=== PATIENT | female | born 2000 | race American Indian/Alaskan Native ===

== ENCOUNTER 2021-01-18 14:03 | Outpatient (CLI) | payer MEDICAID ==
[2021-01-18] MEDS ORDERED: LACTATED RINGERS 500 ML IV ONE (15:46)
[2021-01-18 16:49] VITALS: BP 117/71
== END 2021-01-18 17:05 | disposition home or self-care (01) ==
LOC: TRG 14:03 → APU 14:03 → TRG 17:05
PROVIDERS: ATTEND Student in an Organized Health Care Education/Training Program
DX: O62.9 Abnormality of forces of labor, unspecified (principal); O99.513 Diseases of the respiratory system complicating pregnancy, third trimester; J45.909 Unspecified asthma, uncomplicated; Z3A.34 34 weeks gestation of pregnancy
CPT/HCPCS: 59025; 96360

== ENCOUNTER 2021-02-09 09:41 | Outpatient (CLI) | payer MEDICAID ==
[2021-02-09 10:35] VITALS: BP 120/72
== END 2021-02-09 11:38 | disposition home or self-care (01) ==
LOC: TRG 09:41 → LD 09:44 → TRG 11:38
PROVIDERS: ATTEND Obstetrics & Gynecology
DX: Z34.93 Encounter for supervision of normal pregnancy, unspecified, third trimester (principal); Z3A.37 37 weeks gestation of pregnancy
CPT/HCPCS: 36415; 59025; 84112

== ENCOUNTER 2021-02-16 16:24 | Outpatient (CLI) | payer MEDICAID ==
[2021-02-16 17:01] VITALS: BP 121/76
[2021-02-16 17:52] LABS: Bacteria,Urine 4+ /HPF (Negative); Bilirubin,Urine NEG (Negative); Blood,Urine NEG (Negative); Color,Urine Yellow (Yellow); Protein,Urine <15 mg/dL mg/dL (Negative); Urobilinogen,Urine < 2.0 mg/dL (<2.0)
== END 2021-02-16 19:09 | disposition home or self-care (01) ==
LOC: TRG 16:24 → APU 16:30 → TRG 19:09
PROVIDERS: ATTEND Obstetrics & Gynecology
DX: O26.893 Other specified pregnancy related conditions, third trimester (principal); R10.9 Unspecified abdominal pain; Z3A.38 38 weeks gestation of pregnancy
CPT/HCPCS: 59025; 81001

== ENCOUNTER 2021-02-21 07:27 | Inpatient (IN) | payer MEDICAID ==
--- NOTE | 2021-02-21 08:56 | History and Physical Report ---
History of Present Illness Date of examination: 02/21/21 Date of admission: 02/21/21 Chief complaint: contractions History of present illness: EDC Confirmation: 02/24/2021 Past History : 1 Term Births: 0 Premature Births: 0 Living Children: 0 Para: 0 Mult. Births: 0 Prev : 0 Aborta: 0 Elect. Ab: 0 Spont. Ab: 0 Ectopics: 0 Past Medical History: Reviewed history and no changes required: Negative Past Medical History Past Surgical History: Reviewed history and no changes required: negative Past Medical History Anesthesia Complications: negative Anemia: negative Autoimmune Disorder: negative Bleeding Disorder: negative Blood Transfusions: negative Breast Disease: negative Diabetes: negative Heart Disease: negative Hypertension: negative Hepatitis/Liver Disease: negative Kidney Disease/UTI: negative Neurologic/Epilepsy/Migraines: negative Phlebitis/Varicosities: negative Psychiatric: negative Pulmonary Disease/Asthma: negative Thyroid Disease: negative Hospitalizations: negative 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 of genital herpes: no Partner hx. of genital herpes: no Rash, Viral, or Febrile illness since last LMP? no Varicella/Chicken Pox Status: Immunized TB Risk: no Genetic History Congenital Heart Defect: Mom: no Dad: no Jacob Disease: Mom: no Dad: no Thalassemia Mom: no Dad: no Neural Tube Defect Mom: no Dad: no Down's Syndrome Mom: no Dad: no Guillermo-Sachs Mom: no Dad: no Sickle Cell Disease/Trait Mom: no Dad: no Hemophilia Mom: no Dad: no Muscular Dystrophy Mom: no Dad: no Cystic Fibrosis Mom: no Dad: no [place] Chorea Mom: no Dad: no Mental Retardation Mom: no Dad: no Fragile X Mom: no Dad: no Other Genetic/Chromosomal Disorder Mom: no Dad: no Child w/other defect Mom: no Dad: no Enviromental Exposures Xray Exposure: no Medication, drug, or alcohol use since LMP: no Chemical/Other Exposure: no Exposure to Cat Liter: yes Hx of Parvovirus (Fifth Disease): no Occupational Exposure to Children: none Current Allergies (reviewed today): No known allergies Past History Past Medical History: no pertinent history, other (see HPI) Past Surgical History: no surgical history, other (see HPI) 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: other (see HPI) Family/Genetic History: stroke, other (see HPI) Social history: no significant social history, other (see HPI) - Obstetrical History Expected Date of Delivery: 02/24/21 Actual Gestation: 39 Week(s) 5 Day(s) : 1 Para: 0 Hx # Term Pregnancies: 0 Number of Pregnancies: 0 Spontaneous Abortions: 0 Induced : 0 Number of Living Children: 0 Medications and Allergies Allergies Allergy/AdvReac Type Severity Reaction Status Date / Time No Known Allergies Allergy Verified 02/09/21 10:32 Home Medications Medication Instructions Recorded Confirmed Last Taken Type No.137/Iron/Folic Acd 1 each PO DAILY 02/09/21 02/09/21 02/08/21 History [[facility] Tablet] Nitrofurantoin [place]/M-Cryst 100 mg PO Q12HR #10 capsule 02/16/21 Unknown Rx [Macrobid CAP] Review of Systems All systems: negative Genitourinary: contractions, no vaginal bleeding, no leakage of fluid, no genital sores - Vital Signs Vital signs: Vital Signs Pulse BP 110 H 114/65 02/21/21 08:00 02/21/21 08:00 Temp Pulse Resp BP Pulse Ox 97.5 F L 102 H 16 114/65 95 02/21/21 08:01 02/21/21 08:47 02/21/21 08:01 02/21/21 08:00 02/21/21 08:47 - Physical Exam Breasts: Positive: deferred Cardiovascular: Regular rate Lungs: Positive: Normal air movement Abdomen: Positive: normal appearance, soft. Negative: tenderness Genitourinary (Female): Positive: normal external genitalia, normal perenium Vulva: both: normal Vagina: Positive: normal moisture Uterus: Positive: normal size, normal contour. Negative: tender Anus/Rectum: Positive: normal perianal skin, heme negative Extremities: Positive: normal - Obstetrical FHR: category 1 Uterine Contraction Monitor Mode: External Cervical Dilatation: 3 Cervical Effacement Percentage: 80 station: -2 Uterine Contraction Frequency (min): 2-3 Uterine Contraction Pattern: Regular Uterine Tone Measurement Phase: Resting Results Result Diagrams: 02/21/21 10:05 All other labs normal. Tests: (1) Ct, Ng, Trich vag by HERMAN ([id number]) Order Note: Clinical Information: SRC:VR SRC:UR Chlamydia by HERMAN Negative Negative *1 Gonococcus by HERMAN Negative Negative *2 Trich vag by HERMAN Negative Negative *3 Tests: (2) Strep Gp B HERMAN ([id number]) ! Strep Gp B HERMAN Negative Negative *4 Tests: (1) Profile I ([id number]) HBsAg Screen Negative Negative *1 RPR Non Reactive Non Reactive *2 Rubella Antibodies, IgG 1.82 index Immune >0.99 *3 Non-immune <0.90 Equivocal 0.90 - 0.99 Immune >0.99 ABO Grouping B *4 Rh Factor Positive *5 Please note: Prior records for this patient's ABO / Rh type are not available for additional verification. Antibody Screen Negative Negative *6 WBC 8.8 x10E3/uL 3.4-10.8 *7 RBC 4.88 x10E6/uL 3.77-5.28 *8 Hemoglobin 14.6 g/dL 11.1-15.9 *9 Hematocrit 43.2 % 34.0-46.6 *10 MCV 89 fL 79-97 *11 MCH 29.9 pg 26.6-33.0 *12 MCHC 33.8 g/dL 31.5-35.7 *13 RDW 12.2 % 11.7-15.4 *14 Platelets 193 x10E3/uL 150-450 *15 Neutrophils 78 % Not Estab. *16 Lymphs 17 % Not Estab. *17 Monocytes 4 % Not Estab. *18 Eos 1 % Not Estab. *19 Basos 0 % Not Estab. *20 ! Immature Cells <No Reported Value> *21 Neutrophils (Absolute) 6.9 x10E3/uL 1.4-7.0 *22 Lymphs (Absolute) 1.5 x10E3/uL 0.7-3.1 *23 Monocytes(Absolute) 0.3 x10E3/uL 0.1-0.9 *24 Eos (Absolute) 0.1 x10E3/uL 0.0-0.4 *25 Baso (Absolute) 0.0 x10E3/uL 0.0-0.2 *26 ! Immature Granulocytes 0 % Not Estab. *27 ! Immature Grans (Abs) 0.0 x10E3/uL 0.0-0.1 *28 ! NRBC <No Reported Value> *29 Hematology Comments: <No Reported Value> *30 Tests: (2) HB Solu + Rflx Frac ([id number]) Hemoglobin (Hgb) Solubility Negative Negative *31 Tests: (3) Toxoplasma gondii Ab, IgG ([id number]) ! Toxoplasma gondii Ab,IgG <3.0 IU/mL 0.0-7.1 *32 Negative <7.2 Equivocal 7.2 - 8.7 Positive >8.7 Tests: (4) Cytomegalovirus (CMV) Ab, IgG ([id number]) ! Cytomegalovirus (CMV) Ab, IgG <0.60 U/mL 0.00-0.59 *33 Negative <0.60 Equivocal 0.60 - 0.69 Positive >0.69 Tests: (5) HIV Ag/Ab with Reflex ([id number]) HIV Screen 4th Generation wRfx Non Reactive Non Reactive *34 Tests: (6) Toxoplasma gondii Ab,IgM ([id number]) ! Toxoplasma gondii Ab,IgM <3.0 AU/mL 0.0-7.9 *35 Negative <8.0 Equivocal 8.0 - 9.9 Positive >9.9 Tests: (7) Comment: ([id number]) ! Comment: SPRCS *36 It is presumed the patient has not been infected with and is not undergoing an acute infection with Toxoplasma. If symptoms persist, submit a new specimen after three weeks. Tests: (8) Cytomegalovirus (CMV) Ab, IgM ([id number]) ! Cytomegalovirus (CMV) Ab, IgM <30.0 AU/mL 0.0-29.9 *37 Negative <30.0 Equivocal 30.0 - 34.9 Positive >34.9 A positive result is generally indicative of acute infection, reactivation or persistent IgM production. Tests: (9) HCV Antibody reflex to HERMAN ([id number]) ! HCV Ab <0.1 s/co ratio 0.0-0.9 *38 Tests: (10) Interpretation: ([id number]) ! Interpretation: SPRCS *39 Ultrasound: report reviewed, image reviewed, other (02/12/21: EFW 8lbs 9oz 89%) Assessment and Plan POC d/w pt. Questions encouraged and answered. Pt verbalizes understanding and agrees to POC. Orders placed in EMR for labor admission. Dr. Bonilla made aware. - Patient Problems (1) 39 weeks gestation of Current Visit: Yes Status: Acute Plan to address problem: admit to labor pt may have epidural as desired admission orders placed initiate IV and draw labs Continuous monitoring anticipate
[2021-02-21] MEDS ORDERED: TERBUTALINE 1 MG/1 ML INJ SUB-Q PRN (10:00)
[2021-02-21] MEDS ORDERED: OXYTOCIN DRIP 30 UNITS/500 ML BAG IV SCH (10:00)
[2021-02-21] MEDS ORDERED: OXYTOCIN 10 UNIT/1 ML INJ IM PRN (10:00)
[2021-02-21] MEDS ORDERED: MINERAL OIL 30 ML ORAL LIQD PO PRN (10:00)
[2021-02-21] MEDS ORDERED: LIDOCAINE (2%) 20 MG/1 ML VIAL 20 ML MDV INFILTRATI ONE (10:00)
[2021-02-21] MEDS ORDERED: METHYLERGONOVINE MALEATE 0.2 MG/ML VIAL IM PRN (10:00)
[2021-02-21] MEDS ORDERED: ACETAMINOPHEN 325 MG TAB PO PRN (10:00)
[2021-02-21] MEDS ORDERED: LOPERAMIDE 2 MG CAP PO PRN (10:00)
[2021-02-21] MEDS ORDERED: fentaNYL 100 MCG/2 ML INJ IV PRN (10:00)
[2021-02-21] MEDS ORDERED: ONDANSETRON 4 MG/2 ML INJ IV PRN (10:00)
[2021-02-21] MEDS ORDERED: NALOXONE 0.4 MG/1 ML INJ IV PRN (10:00)
[2021-02-21] MEDS ORDERED: CARBOPROST TROMETHAMINE 250 MCG/1 ML INJ IM PRN (10:00)
[2021-02-21] MEDS ORDERED: ePHEDrine SULFATE 50 MG/1 ML INJ IV PRN ×2 (10:00→14:03)
[2021-02-21] MEDS ORDERED: NalbUPHINE 10 MG/1 ML INJ IV PRN (10:00)
[2021-02-21] MEDS ORDERED: miSOPROStol 200 MCG TAB PR PRN (10:00)
[2021-02-21 10:54] LABS: Hematocrit 35.6 % (30.3-42.9); Hemoglobin 11.1 gm/dl (10.1-14.3); Mean Corpuscular HGB Conc 31 % (30-34); Mean Corpuscular Volume 78 fl (79-97); Platelet Count 195 K/mm3 (140-440); Red Blood Count 4.58 M/mm3 (3.65-5.03); Red Cell Distribution Width 15.6 % (13.2-15.2)
[2021-02-21] MEDS: LACTATED RINGERS 1,000 ML IV SCH ×2 (12:16→15:59)
--- NOTE | 2021-02-21 14:01 | Anesthesia Consultation ---
Anesthesia Consult and Med Hx Date of service: 02/21/21 - Airway Anesthetic Teeth Evaluation: Poor ROM Head & Neck: Adequate Mental/Hyoid Distance: Adequate Mallampati Class: Class II Intubation Access Assessment: Good - Pulmonary Exam CTA: Yes - Cardiac Exam Cardiac Exam: RRR - Pre-Operative Health Status ASA Pre-Surgery Classification: ASA2 Proposed Anesthetic Plan: Epidural - Pulmonary Hx Smoking: No Hx Asthma: Yes (Childhood) Hx Respiratory Symptoms: No SOB: No COPD: No Home Oxygen Therapy: No Hx Pneumonia: No Hx Sleep Apnea: No - Cardiovascular System Hx Hypertension: No Hx Coronary Artery Disease: No Hx Heart Attack/AMI: No Hx Angina: No Hx Percutaneous Transluminal Coronary Angioplasty (PTCA): No Hx Cardia Arrhythmia: No Hx Pacemaker: No Hx Internal Defibrillator: No Hx Valvular Heart Disease: No Hx Heart Murmur: No Hx Peripheral Vascular Disease: No - Central Nervous System Hx Neuromuscular Disorder: No Hx Seizures: No CVA: No Hx Back Pain: No Hx Psychiatric Problems: No - Gastrointestinal Hx Ulcer: No Hx Gastroesophageal Reflux Disease: Yes - Endocrine Hx Renal Disease: No Hx End Stage Renal Disease: No Hx Cirrhosis: No Hx Liver Disease: No Hx Insulin Dependent Diabetes: No Hx Non-Insulin Dependent Diabetes: No Hx Thyroid Disease: No Hx Hypothyroidism: No Hx Hyperthyroidism: No - Hematic Hx Anemia: No Hx Sickle Cell Disease: No - Other Systems Hx Alcohol Use: No Hx Substance Use: No Hx Cancer: No Hx Obesity: Yes - Additional Comments Anesthesia Medical History Comments: T& A no anesthesia complications
--- NOTE | 2021-02-21 14:02 | Progress Note ---
Labor Epidural - Labor Epidural Start Time: 13:39 Stop Time: 13:50 Performed by:: ALLISON JORDAN Procedure: Patient is requesting epidural for labor pain. H&P and labs reviewed. Procedure explained, questions answered, consent obtained. Patient placed in sitting position with monitors applied. Timeout performed immediately before start of procedure. Prep/drape in usual sterile fashion. Skin localized 3 mL 1% lidocaine at L[3]-L[4] interspace. 17-gauge Touhy epidural needle advanced to CINTHIA with saline at [8] cm. No blood/CSF noted via epidural needle. Epidural catheter advanced to [12] cm. Negative aspiration for blood and CSF via catheter, negative response to test dose 3 ml 1.5% lidocaine w/ Epi. Sterile dressing applied followed by tape reinforcement. Patient tolerated procedure well. No immediate complications noted.
[2021-02-21] MEDS ORDERED: NALOXONE 2 MG/2 ML INJ IV PRN (14:03)
[2021-02-21] MEDS ORDERED: OXYTOCIN DRIP 30,000 MILLIUNITS/500 ML BAG IV ONE (14:38)
--- NOTE | 2021-02-21 14:38 | Progress Note ---
Assessment and Plan Pt with small cervical change. Discussed augmentation. Questions encouraged and addressed. Pt verbalizes understanding and agrees. SVE performed with AROM- clear fluid. Pitocin ordered per protocol. Dr. Bonilla made aware. - Patient Problems (1) 39 weeks gestation of Current Visit: Yes Status: Acute Subjective - Subjective Date of service: 02/22/21 Principal diagnosis: IUP @ term, labor Interval history: EDC Confirmation: 02/24/2021 Past History : 1 Term Births: 0 Premature Births: 0 Living Children: 0 Para: 0 Mult. Births: 0 Prev : 0 Aborta: 0 Elect. Ab: 0 Spont. Ab: 0 Ectopics: 0 Past Medical History: Reviewed history and no changes required: Negative Past Medical History Past Surgical History: Reviewed history and no changes required: negative Past Medical History Anesthesia Complications: negative Anemia: negative Autoimmune Disorder: negative Bleeding Disorder: negative Blood Transfusions: negative Breast Disease: negative Diabetes: negative Heart Disease: negative Hypertension: negative Hepatitis/Liver Disease: negative Kidney Disease/UTI: negative Neurologic/Epilepsy/Migraines: negative Phlebitis/Varicosities: negative Psychiatric: negative Pulmonary Disease/Asthma: negative Thyroid Disease: negative Hospitalizations: negative 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 of genital herpes: no Partner hx. of genital herpes: no Rash, Viral, or Febrile illness since last LMP? no Varicella/Chicken Pox Status: Immunized TB Risk: no Genetic History Congenital Heart Defect: Mom: no Dad: no Jacob Disease: Mom: no Dad: no Thalassemia Mom: no Dad: no Neural Tube Defect Mom: no Dad: no Down's Syndrome Mom: no Dad: no Guillermo-Sachs Mom: no Dad: no Sickle Cell Disease/Trait Mom: no Dad: no Hemophilia Mom: no Dad: no Muscular Dystrophy Mom: no Dad: no Cystic Fibrosis Mom: no Dad: no [place] Chorea Mom: no Dad: no Mental Retardation Mom: no Dad: no Fragile X Mom: no Dad: no Other Genetic/Chromosomal Disorder Mom: no Dad: no Child w/other defect Mom: no Dad: no Enviromental Exposures Xray Exposure: no Medication, drug, or alcohol use since LMP: no Chemical/Other Exposure: no Exposure to Cat Liter: yes Hx of Parvovirus (Fifth Disease): no Occupational Exposure to Children: none Current Allergies (reviewed today): No known allergies Patient reports: no new complaints Objective - Vital Signs Vital Signs: Vital Signs - 12hr 02/21/21 02/21/21 02/21/21 08:00 08:01 08:02 Temperature 97.5 F L Pulse Rate 110 H 107 H Respiratory 16 Rate Blood Pressure 114/65 Blood Pressure [Left] O2 Sat by Pulse 97 96 Oximetry O2 Sat by Pulse Oximetry [ Bilateral Throughout] 02/21/21 02/21/21 02/21/21 08:07 08:12 08:17 Temperature Pulse Rate 111 H 101 H 99 H Respiratory Rate Blood Pressure Blood Pressure [Left] O2 Sat by Pulse 96 97 97 Oximetry O2 Sat by Pulse Oximetry [ Bilateral Throughout] 02/21/21 02/21/21 02/21/21 08:22 08:27 08:31 Temperature Pulse Rate 111 H 127 H 115 H Respiratory Rate Blood Pressure Blood Pressure [Left] O2 Sat by Pulse 97 95 94 Oximetry O2 Sat by Pulse Oximetry [ Bilateral Throughout] 02/21/21 02/21/21 02/21/21 08:32 08:36 08:37 Temperature Pulse Rate 111 H 118 H 115 H Respiratory Rate Blood Pressure Blood Pressure [Left] O2 Sat by Pulse 95 94 93 Oximetry O2 Sat by Pulse Oximetry [ Bilateral Throughout] 02/21/21 02/21/21 02/21/21 08:42 08:43 08:47 Temperature Pulse Rate 108 H 106 H 102 H Respiratory Rate Blood Pressure Blood Pressure [Left] O2 Sat by Pulse 94 94 95 Oximetry O2 Sat by Pulse Oximetry [ Bilateral Throughout] 02/21/21 02/21/21 02/21/21 08:52 08:57 09:02 Temperature Pulse Rate 91 H 92 H 100 H Respiratory Rate Blood Pressure Blood Pressure [Left] O2 Sat by Pulse 98 96 98 Oximetry O2 Sat by Pulse Oximetry [ Bilateral Throughout] 02/21/21 02/21/21 02/21/21 09:07 09:18 09:19 Temperature Pulse Rate 102 H 85 87 Respiratory Rate Blood Pressure Blood Pressure [Left] O2 Sat by Pulse 98 93 96 Oximetry O2 Sat by Pulse Oximetry [ Bilateral Throughout] 02/21/21 02/21/21 02/21/21 09:24 09:29 09:35 Temperature Pulse Rate 101 H 103 H 95 H Respiratory Rate Blood Pressure Blood Pressure [Left] O2 Sat by Pulse 97 97 96 Oximetry O2 Sat by Pulse Oximetry [ Bilateral Throughout] 02/21/21 02/21/21 02/21/21 09:40 09:43 09:45 Temperature Pulse Rate 100 H 106 H 96 H Respiratory Rate Blood Pressure Blood Pressure [Left] O2 Sat by Pulse 96 94 94 Oximetry O2 Sat by Pulse Oximetry [ Bilateral Throughout] 02/21/21 02/21/21 02/21/21 09:50 09:55 09:56 Temperature Pulse Rate 101 H 103 H 98 H Respiratory Rate Blood Pressure Blood Pressure [Left] O2 Sat by Pulse 94 97 94 Oximetry O2 Sat by Pulse Oximetry [ Bilateral Throughout] 02/21/21 02/21/21 02/21/21 10:00 10:05 10:10 Temperature Pulse Rate 107 H 106 H 97 H Respiratory Rate Blood Pressure Blood Pressure [Left] O2 Sat by Pulse 96 97 94 Oximetry O2 Sat by Pulse Oximetry [ Bilateral Throughout] 02/21/21 02/21/21 02/21/21 10:15 10:16 10:20 Temperature Pulse Rate 106 H 105 H 94 H Respiratory Rate Blood Pressure Blood Pressure [Left] O2 Sat by Pulse 98 93 97 Oximetry O2 Sat by Pulse Oximetry [ Bilateral Throughout] 02/21/21 02/21/21 02/21/21 10:29 10:34 10:38 Temperature Pulse Rate 95 H 87 97 H Respiratory Rate Blood Pressure Blood Pressure [Left] O2 Sat by Pulse 96 97 94 Oximetry O2 Sat by Pulse Oximetry [ Bilateral Throughout] 02/21/21 02/21/21 02/21/21 10:39 10:44 10:49 Temperature Pulse Rate 91 H 94 H 106 H Respiratory Rate Blood Pressure Blood Pressure [Left] O2 Sat by Pulse 95 98 96 Oximetry O2 Sat by Pulse Oximetry [ Bilateral Throughout] 02/21/21 02/21/21 02/21/21 10:54 10:59 11:04 Temperature Pulse Rate 92 H 104 H 101 H Respiratory Rate Blood Pressure Blood Pressure [Left] O2 Sat by Pulse 98 95 98 Oximetry O2 Sat by Pulse Oximetry [ Bilateral Throughout] 02/21/21 02/21/2122 11:09 11:11 11:14 Temperature Pulse Rate 97 H 97 H 103 H Respiratory Rate Blood Pressure Blood Pressure [Left] O2 Sat by Pulse 99 94 97 Oximetry O2 Sat by Pulse Oximetry [ Bilateral Throughout] 02/21/21 02/21/21 02/21/21 11:19 11:24 11:28 Temperature Pulse Rate 95 H 95 H 104 H Respiratory Rate Blood Pressure Blood Pressure [Left] O2 Sat by Pulse 97 97 94 Oximetry O2 Sat by Pulse Oximetry [ Bilateral Throughout] 02/21/21 02/21/21 02/21/21 11:29 11:34 11:35 Temperature Pulse Rate 113 H 109 H 100 H Respiratory Rate Blood Pressure Blood Pressure [Left] O2 Sat by Pulse 94 95 94 Oximetry O2 Sat by Pulse Oximetry [ Bilateral Throughout] 02/21/21 02/21/21 02/21/21 11:39 11:44 13:31 Temperature Pulse Rate 101 H 101 H 112 H Respiratory Rate Blood Pressure 100/58 Blood Pressure [Left] O2 Sat by Pulse 96 98 Oximetry O2 Sat by Pulse Oximetry [ Bilateral Throughout] 02/21/21 02/21/21 02/21/21 13:32 13:37 13:39 Temperature Pulse Rate 104 H 102 H 113 H Respiratory Rate Blood Pressure 110/60 Blood Pressure [Left] O2 Sat by Pulse 100 99 Oximetry O2 Sat by Pulse Oximetry [ Bilateral Throughout] 02/21/21 02/21/21 02/21/21 13:41 13:42 13:43 Temperature 98.3 F Pulse Rate 101 H 96 H 114 H Respiratory 16 Rate Blood Pressure 111/60 103/51 Blood Pressure 108/53 [Left] O2 Sat by Pulse 100 Oximetry O2 Sat by Pulse 99 Oximetry [ Bilateral Throughout] 02/21/21 02/21/21 02/21/21 13:45 13:47 13:49 Temperature Pulse Rate 104 H 104 H 111 H Respiratory Rate Blood Pressure 109/56 108/53 108/52 Blood Pressure [Left] O2 Sat by Pulse 99 Oximetry O2 Sat by Pulse Oximetry [ Bilateral Throughout] 02/21/21 02/21/21 02/21/21 13:51 13:52 13:53 Temperature Pulse Rate 112 H 95 H 90 Respiratory Rate Blood Pressure 105/58 105/56 Blood Pressure [Left] O2 Sat by Pulse 100 Oximetry O2 Sat by Pulse Oximetry [ Bilateral Throughout] 02/21/21 02/21/21 02/21/21 13:55 13:57 13:59 Temperature Pulse Rate 102 H 126 H 99 H Respiratory Rate Blood Pressure 118/68 108/57 110/58 Blood Pressure [Left] O2 Sat by Pulse 99 Oximetry O2 Sat by Pulse Oximetry [ Bilateral Throughout] 02/21/21 02/21/21 02/21/21 14:01 14:02 14:03 Temperature Pulse Rate 103 H 104 H 97 H Respiratory Rate Blood Pressure 106/55 106/56 Blood Pressure [Left] O2 Sat by Pulse 98 Oximetry O2 Sat by Pulse Oximetry [ Bilateral Throughout] 02/21/21 02/21/21 02/21/21 14:05 14:07 14:09 Temperature Pulse Rate 123 H 98 H 106 H Respiratory Rate Blood Pressure 95/51 107/56 106/55 Blood Pressure [Left] O2 Sat by Pulse 98 Oximetry O2 Sat by Pulse Oximetry [ Bilateral Throughout] 02/21/21 02/21/21 02/21/21 14:11 14:12 14:13 Temperature Pulse Rate 122 H 109 H 98 H Respiratory Rate Blood Pressure 91/53 107/61 Blood Pressure [Left] O2 Sat by Pulse 97 Oximetry O2 Sat by Pulse Oximetry [ Bilateral Throughout] 02/21/21 02/21/21 02/21/21 14:15 14:17 14:19 Temperature Pulse Rate 107 H 115 H 115 H Respiratory Rate Blood Pressure 101/59 100/55 97/53 Blood Pressure [Left] O2 Sat by Pulse 98 Oximetry O2 Sat by Pulse Oximetry [ Bilateral Throughout] 02/21/21 02/21/21 02/21/21 14:21 14:22 14:23 Temperature Pulse Rate 100 H 104 H 106 H Respiratory Rate Blood Pressure 108/59 101/56 Blood Pressure [Left] O2 Sat by Pulse 97 Oximetry O2 Sat by Pulse Oximetry [ Bilateral Throughout] 02/21/21 02/21/21 02/21/21 14:25 14:27 14:29 Temperature Pulse Rate 114 H 98 H 103 H Respiratory Rate Blood Pressure 90/54 106/62 97/52 Blood Pressure [Left] O2 Sat by Pulse 97 Oximetry O2 Sat by Pulse Oximetry [ Bilateral Throughout] 02/21/21 02/21/21 02/21/21 14:31 14:32 14:33 Temperature Pulse Rate 107 H 102 H 104 H Respiratory Rate Blood Pressure 99/48 99/51 Blood Pressure [Left] O2 Sat by Pulse 97 Oximetry O2 Sat by Pulse Oximetry [ Bilateral Throughout] 02/21/21 14:37 Temperature Pulse Rate 125 H Respiratory Rate Blood Pressure 85/49 Blood Pressure [Left] O2 Sat by Pulse Oximetry O2 Sat by Pulse Oximetry [ Bilateral Throughout] - Exam Breasts: deferred Cardiovascular: Regular rate Lungs: Normal air movement Abdomen: Present: normal appearance, soft Vulva: both: normal Uterus: Present: normal FHR: auscultation normal, category 1 Uterine Contraction Monitor Mode: External Cervical Dilatation: 4 Cervical Effacement Percentage: 90 station: -2 Uterine Contraction Frequency (min): 8 Uterine Contraction Pattern: Regular Uterine Tone Measurement Phase: Resting Extremities: normal - Labs Labs: Abnormal Labs 02/21/21 10:05 WBC 12.4 H MCV 78 L MCH 24 L RDW 15.6 H Laboratory Results - last 24 hr 02/21/21 02/21/21 02/21/21 10:05 10:05 10:05 WBC 12.4 H RBC 4.58 Hgb 11.1 Hct 35.6 MCV 78 L MCH 24 L MCHC 31 RDW 15.6 H Plt Count 195 Syphilis IgG Antibody Nonreactive SARS-CoV-2 (PCR) Blood Type B POSITIVE Antibody Screen Negative 02/21/21 10:12 WBC RBC Hgb Hct MCV MCH MCHC RDW Plt Count Syphilis IgG Antibody SARS-CoV-2 (PCR) Negative Blood Type Antibody Screen
[2021-02-21] MEDS ORDERED: fentaNYL-BUPIV 2 MCG/ML-0.125% 200 MCG/100 ML BAG EPIDURAL SCH (15:00)
--- NOTE | 2021-02-22 00:21 | Procedure Note ---
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
[2021-02-22] MEDS ORDERED: MAGNESIUM HYDROXIDE (MOM) ORAL LIQD UDC PO PRN (04:03)
[2021-02-22] MEDS ORDERED: BENZOCAINE/MENTHOL 20/0.5% TOP SPRAY 56 GM TP PRN (04:03)
[2021-02-22] MEDS ORDERED: PROMETHAZINE 25 MG TAB PO PRN (04:03)
[2021-02-22] MEDS ORDERED: IBUPROFEN 600 MG TAB PO SCH ×2 (04:03→18:26)
[2021-02-22] MEDS ORDERED: WITCH HAZEL/ GLYCERIN PAD TP PRN (04:03)
[2021-02-22] MEDS ORDERED: ACETAMINOPHEN 325 MG TAB PO PRN ×2 (04:03→18:25)
[2021-02-22] MEDS ORDERED: oxyCODONE /ACETAMINOPHEN 5-325MG TAB PO PRN (04:03)
[2021-02-22] MEDS ORDERED: LANOLIN/ZINC/DIMETHICONE (LANSINOH) 7 GM TP PRN (04:03)
[2021-02-22] MEDS ORDERED: ONDANSETRON 4 MG/2 ML INJ IV PRN (04:03)
[2021-02-22] MEDS ORDERED: diphenhydrAMINE 25 MG CAP PO PRN (04:03)
[2021-02-22] MEDS ORDERED: HYDROCORTISONE 25 MG RECTAL SUPP PR PRN (04:03)
[2021-02-22] MEDS ORDERED: PROMETHAZINE 25 MG RECT SUPP PR PRN (04:03)
[2021-02-22] MEDS ORDERED: PRENATAL VIT27-FE FUMARATE-FOLIC ACID VIT TAB PO SCH (10:00)
[2021-02-22 11:10] LABS: Hematocrit 28.9 % (30.3-42.9); Hemoglobin 9.2 gm/dl (10.1-14.3)
--- NOTE | 2021-02-22 15:05 | Post Anesthesia Evaluation ---
- Post Anesthesia Evaluation Patient Participated: Yes Airway Patent: Yes Stable Respiratory Function: Yes Nausea/Vomiting: No Temp > 96.8F: Yes Pain Manageable: Yes Adequeate Hydration: Yes Anesthesia Complications: No Block Receding Appropriately: Yes Patient on Ventilator: No
--- NOTE | 2021-02-22 18:49 | Progress Note ---
Assessment and Plan A: 21 y.o. s/p . P: Continue with care. Motrin increased to 800mg and scheduled every 6hrs. Also Tylenol increased to 1000mg of Tylenol. Anticipate discharge home on 02/23. Subjective - Subjective Date of service: 02/22/21 Principal diagnosis: s/p Interval history: Spoke with RN taking care of patient and patient. Pt states that she is not getting pain relief from Motrin 600mg. Patient reports: appetite normal, voiding normally, flatus, pain poorly controlled (Pt with c/o cramping not relieved by 600mg of Motrin. ), ambulating normally [place]: doing well Objective - Vital Signs Latest vital signs: Vital Signs Temp Pulse Resp BP BP Pulse Ox Pulse Ox 02/22/21 12:29 99 02/22/21 08:30 97.5 F L 74 16 118/79 97 97 02/22/21 06:03 98.6 F 17 123/60 02/22/21 06:01 111 H 123/60 02/22/21 04:21 18 02/22/21 01:42 114 H 99 02/22/21 01:37 105 H 98 02/22/21 01:32 112 H 127/60 99 02/22/21 01:27 102 H 99 02/22/21 01:22 111 H 99 02/22/21 01:17 111 H 100 02/22/21 01:12 98 H 99 02/22/21 01:07 103 H 99 02/22/21 01:02 105 H 119/63 99 02/22/21 00:57 108 H 99 02/22/21 00:52 111 H 100 02/22/21 00:47 105 H 125/74 99 02/22/21 00:42 102 H 99 02/22/21 00:37 106 H 100 02/22/21 00:32 106 H 122/66 100 02/22/21 00:27 111 H 99 02/22/21 00:22 107 H 100 02/22/21 00:17 110 H 121/74 99 02/22/21 00:12 98 H 100 02/22/21 00:07 109 H 99 02/22/21 00:02 93 H 125/67 100 02/21/21 23:57 105 H 100 02/21/21 23:52 100 H 100 02/21/21 23:47 100 H 132/73 100 02/21/21 23:42 98 H 100 02/21/21 23:37 103 H 99 02/21/21 23:32 105 H 119/91 100 02/21/21 23:27 110 H 99 02/21/21 23:22 120 H 100 02/21/21 23:17 114 H 100 02/21/21 23:12 113 H 100 02/21/21 23:08 116 H 122/65 02/21/21 23:07 115 H 97 02/21/21 23:02 127 H 95 02/21/21 22:59 131 H 90 02/21/21 22:57 166 H 90 02/21/21 22:52 138 H 90 02/21/21 22:47 83 L 02/21/21 22:46 89 02/21/21 22:41 138 H 91 02/21/21 22:02 126 H 99 02/21/21 22:01 116 H 116/57 02/21/21 21:57 120 H 99 02/21/21 21:52 112 H 99 02/21/21 21:47 121 H 100 02/21/21 21:42 123 H 100 02/21/21 21:37 115 H 100 02/21/21 21:32 112 H 100 02/21/21 21:31 108 H 126/61 02/21/21 21:27 107 H 100 02/21/21 21:22 111 H 100 02/21/21 21:17 107 H 99 02/21/21 21:12 105 H 99 02/21/21 21:07 125 H 99 02/21/21 21:02 105 H 100 02/21/21 21:01 103 H 124/60 02/21/21 20:57 110 H 100 02/21/21 20:52 109 H 100 02/21/21 20:47 115 H 100 02/21/21 20:42 108 H 100 02/21/21 20:37 107 H 99 02/21/21 20:32 107 H 99 02/21/21 20:31 109 H 115/64 02/21/21 20:27 110 H 99 02/21/21 20:22 112 H 99 02/21/21 20:17 102 H 99 02/21/21 20:12 109 H 100 02/21/21 20:07 111 H 98 02/21/21 20:02 116 H 99 02/21/21 19:59 116 H 133/59 02/21/21 19:57 108 H 99 02/21/21 19:52 113 H 119/65 100 02/21/21 19:47 109 H 119/66 99 02/21/21 19:42 109 H 117/64 100 02/21/21 19:37 105 H 115/65 100 02/21/21 19:33 113 H 106/60 02/21/21 19:32 111 H 99 02/21/21 19:27 109 H 123/64 99 02/21/21 19:22 113 H 125/62 99 02/21/21 19:17 119 H 99 02/21/21 19:13 121 H 107/66 02/21/21 19:12 119 H 99 02/21/21 19:08 129 H 109/56 02/21/21 19:07 127 H 99 02/21/21 19:02 116 H 126/68 99 02/21/21 19:00 97.4 F L 108 H 16 126/68 99 99 02/21/21 18:57 108 H 121/75 100 02/21/21 18:53 107 H 123/67 02/21/21 18:52 105 H 100 02/21/21 18:48 110 H 119/70 02/21/21 18:47 111 H 99 Intake and Output 02/22/21 02/22/21 02/22/21 06:59 14:59 22:59 Output Total 600 300 500 Balance -600 -300 -500 Output: Urine 600 300 500 Indwelling Catheter 600 300 500 Other: Total, Output Amount 600 300 500 Estimated Blood Loss 200 - Exam Narrative Exam: Moderate lochia rubra noted. Abdomen: Present: normal appearance, soft Vulva: both: normal Uterus: Present: normal, firm Extremities: Present: normal - Labs Labs: Abnormal lab results 02/22/21 Range/Units 10:53 Hgb 9.2 L (10.1-14.3) gm/dl Hct 28.9 L D (30.3-42.9) %
[2021-02-23] MEDS: DOCUSATE SODIUM 100 MG CAP PO SCH ×2 (01:09→09:09)
[2021-02-23 01:25] VITALS: BP 115/78
[2021-02-23] MEDS ORDERED: TETANUS,DIPH,PERTUSS(ACELL) VACCINE 0.5 ML SYRINGE IM ONE (06:00)
--- NOTE | 2021-02-23 07:55 | Discharge Summary ---
Providers - Providers Date of Admission: 02/21/21 08:58 Date of discharge: 02/23/21 (desires d/c home) Attending physician: HEATHER WORLEY MD 02/22/21 04:03 Consult to [employer] [CONS] Routine Reason For Exam: assistance with , SNS Primary care physician: HEATHER WORLEY MD Hospitalization Reason for admission: labor Condition: Good Pertinent studies: post delivery H&H 9.2/28.9, asymptomatic anemia d/t acute blood loss. Procedures: Hospital course: uncomplicated and course Disposition: HOME / SELF CARE / HOMELESS Final Discharge Diagnosis (Prints w/discharge instructions): Time spent for discharge: 20 - Discharge Diagnoses (1) (normal spontaneous vaginal delivery) Status: Acute Core Measure Documentation - Palliative Care Palliative Care/ Comfort Measures: Not Applicable - Core Measures Any of the following diagnoses?: none Exam - Constitutional Vitals: Temp Pulse Resp BP Pulse Ox 98.7 F 75 18 115/78 98 02/23/21 00:30 02/23/21 00:30 02/23/21 01:00 02/23/21 00:30 02/22/21 20:00 General appearance: Present: no acute distress, well-nourished - EENT Eyes: Present: PERRL ENT: hearing intact, clear oral mucosa - Neck Neck: Present: supple, normal ROM - Respiratory Respiratory effort: normal Respiratory: bilateral: CTA - Cardiovascular Heart Sounds: Present: rub - Extremities Extremities: No edema Peripheral Pulses: within normal limits - Abdominal General gastrointestinal: Present: soft, non-tender, non-distended, normal bowel sounds Female genitourinary: Present: normal - Integumentary Integumentary: Present: clear, warm, dry - Musculoskeletal Musculoskeletal: gait normal, strength equal bilaterally - Psychiatric Psychiatric: appropriate mood/affect, intact judgment & insight - Neurologic Neurologic: CNII-XII intact, moves all extremities - Additional findings Additional findings: lochia scant, fundus firm, , VSSAF Plan Activity: no restrictions Diet: regular Wound: open to air Follow up with: HEATHER WORLEY MD [Primary Care Provider] - 7 Days (Congratulations! Please call [phone] to schedule your son's circumcision in 7 days and your visit in 4 weeks. Bring EMLA cream to your son's visit and wait for instructions. Call for any questions or concerns.) Prescriptions: Lidocain2.5%/Prilocai2.5% [Emla] 1 applic TP ONCE #1 tube Ferrous Sulfate [Feosol 325 MG tab] 325 mg PO BID #60 tablet Ibuprofen [Motrin] 800 mg PO Q8HR PRN #20 tablet PRN Reason: Pain, Moderate (4-6)
[2021-02-23] MEDS: IBUPROFEN 800 MG TAB PO SCH ×2 (09:10)
== END 2021-02-23 10:40 | disposition home or self-care (01) | DRG 775 ==
LOC: TRG 07:27 → APU 07:30 → TRG 09:31 → LD 13:18 → OB 02-22 07:29
PROVIDERS: ADMIT Student in an Organized Health Care Education/Training Program; ATTEND Student in an Organized Health Care Education/Training Program
PROC: 10E0XZZ Delivery of Products of Conception, External Approach (ICD-10-PCS; principal; 2021-02-21)
PROC: 0KQM0ZZ Repair Perineum Muscle, Open Approach (ICD-10-PCS; 2021-02-21)
PROC: 3E0R3BZ Introduction of Anesthetic Agent into Spinal Canal, Percutaneous Approach (ICD-10-PCS; 2021-02-21)
PROC: 00HU33Z Insertion of Infusion Device into Spinal Canal, Percutaneous Approach (ICD-10-PCS; 2021-02-21)
PROC: 10907ZC Drainage of Amniotic Fluid, Therapeutic from Products of Conception, Via Natural or Artificial Opening (ICD-10-PCS; 2021-02-21)
PROC: 3E0234Z Introduction of Serum, Toxoid and Vaccine into Muscle, Percutaneous Approach (ICD-10-PCS; 2021-02-23)
DX: O99.62 Diseases of the digestive system complicating childbirth (principal); Z3A.39 39 weeks gestation of pregnancy; Z37.0 Single live birth; Z20.822 Contact with and (suspected) exposure to COVID-19; K21.9 Gastro-esophageal reflux disease without esophagitis; O90.81 Anemia of the puerperium; D62 Acute posthemorrhagic anemia; O99.52 Diseases of the respiratory system complicating childbirth; J45.909 Unspecified asthma, uncomplicated; O70.1 Second degree perineal laceration during delivery; Z23 Encounter for immunization
CPT/HCPCS: 36415; 59020; 59025; 81001; 85014; 85018; 85027; 86592; 86850; 86900; 86901; 93005; G0378; J3490; J2405; J2590; J7120; U0003